=== PATIENT | male | born 1980 | race Caucasian/White ===

== ENCOUNTER 2016-08-06 11:48 | Emergency (ER) | payer OTHER ==
[~2016-08-06] VITALS: Wt 68.1 kg
[2016-08-06] MEDS ORDERED: LIDOCAINE 1% (MPF) 5 ML VIAL SC ONE ×2 (14:30→15:30)
[2016-08-06 14:32] LABS: ADD SCAN DIFF NO
[2016-08-06 14:39] LABS: BASOPHILS % 0.7 % (0.0-2.0); EOSINOPHILS # 0.3 10^3/ul (0.0-0.5); EOSINOPHILS % 4.4 % (0.0-7.0); HEMATOCRIT 44.7 % (42.0-52.0); HEMOGLOBIN 14.3 g/dl (14.0-18.0); LYMPHOCYTES % 34.7 % (15.0-51.0); MEAN CORPUSCULAR HEMOGLOBIN 28.4 pg (29.0-33.0); MEAN CORPUSCULAR VOLUME 88.9 fl (82.0-101.0); MONOCYTE # 0.7 10^3/ul (0.3-0.9); MONOCYTES % 12.1 % (0.0-11.0); NEUTROPHIL # 2.8 10^3/ul (1.6-7.5); NEUTROPHILS % 47.8 % (39.0-77.0); PLATELET COUNT 211 10^3/UL (140-415); RED BLOOD COUNT 5.03 10^6/ul (4.70-6.10); RED CELL DISTRIBUTION WIDTH 13.2 % (11.5-14.5); WHITE BLOOD COUNT 5.9 10^3/ul (4.8-10.8)
[2016-08-06] MEDS ORDERED: ALPR1TAB7 PO (14:39)
[2016-08-06] MEDS ORDERED: MORP60TA37 PO (14:41)
[2016-08-06 14:53] LABS: INR 1.01; POTASSIUM 4.4 mmol/L (3.5-5.1); PROTIME 13.3 Sec (12.2-14.2)
[2016-08-06 14:54] LABS: PARTIAL THROMBOPLASTIN TIME 29.8 Sec (25.0-35.0)
[2016-08-06 14:56] LABS: CREATININE 0.56 mg/dl (0.61-1.24)
[2016-08-06 14:57] LABS: CALCIUM 9.6 mg/dl (8.4-10.2)
[2016-08-06 15:29] LABS: ADD UMIC YES; URINE BILIRUBIN (Dip) NEGATIVE (NEGATIVE); URINE BLOOD (Dip) TRACE (NEGATIVE); URINE COLOR LT. YELLOW (YELLOW); URINE GLUCOSE (Dip) NEGATIVE (NEGATIVE); URINE KETONES (Dip) NEGATIVE (NEGATIVE); URINE LEUKOCYTE ESTERASE (Dip) 1+ (NEGATIVE); URINE NITRITE (Dip) POSITIVE (NEGATIVE); URINE TOTAL PROTEIN (Dip) NEGATIVE (NEGATIVE); URINE UROBILINOGEN (Dip) 0.2 E.U./dL (0.1-1.0)
[2016-08-06 15:36] LABS: BACTERIA,URINE MODERATE; MUCUS,URINE FEW
--- NOTE | 2016-08-06 16:31 | RADRPT ---
PROCEDURE: XR Chest. CLINICAL INDICATION: Check PICC line position. TECHNIQUE: Single frontal view. COMPARISON: No prior study is available for comparison. FINDINGS: There is a left arm PICC line with the tip in the lower superior vena cava. The visualized portions of the lungs are clear. The lung bases are not completely included on the image. There has been p rior cervical spine surgery with hardware noted. The heart size is normal. There is no pleural effusion. There is no pneumothorax. IMPRESSION: 1. Satisfactory position of left arm PICC line. 2. Lower lung is not completely included on the image. 3. Prior cervical spine surgery. RPTAT: QQ .Haris Rosario MD, MD Date Time Electronically viewed and signed by .Haris Rosario MD, on 08/06/2016 16:30 .R/
[2016-08-06] MEDS ORDERED: ALPR2TAB PO (16:43)
[2016-08-06] MEDS ORDERED: NAPR-688 PO (16:55)
[2016-08-06] MEDS ORDERED: LEVO500T72 PO (16:55)
[2016-08-06] MEDS ORDERED: PIPER-TAZO 3.375 GM IV (PMX) 100 ML IVPB ONE (17:00)
--- NOTE | 2016-08-06 17:37 | ERD ---
ER Documentation Chief Complaint Date/Time DATE: 08/06/16 TIME: 17:33 Chief Complaint SENT HERE BY PMD FOR PICC LINE INSERTION FOR HOME ABX THERAPY FOR UTI. HPI 36-year-old male comes to the emergency room for PICC line insertion he said was recommended by his doctor. Patient is intelligent and knows his doctors names and numbers. He states that he gets frequent urinary tract and infections as he is a paraplegic. Most recently his urine grew Pseudomonas that was resistant to ciprofloxacin. He states that Zosyn is now recommended for home use. He is currently has been burning on urination. He denies any fevers chills. ROS All systems reviewed and are negative except as per history of present illness. Medications Home Meds Active Scripts Naproxen* (Naproxen*) 500 Mg Tablet, 500 MG PO BID Y for PAIN, #14 TAB Prov:JOANNA NICHOLS DO 08/06/16 Levofloxacin* (Levaquin*) 500 Mg Tablet, 500 MG PO DAILY for 7 Days, TAB Prov:JOANNA NICHOLS DO 08/06/16 Reported Medications Alprazolam* (Xanax*) 2 Mg Tablet, 2 MG PO BID Y for ANXIETY, TAB 08/06/16 Morphine Sulfate* (Ms Contin*) 60 Mg Tablet.sa, 60 MG PO Q12, TAB.SA 08/06/16 Discontinued Reported Medications Alprazolam* (Alprazolam*) 1 Mg Tablet, 2 MG PO BID Y for ANXIETY, TAB 08/06/16 Allergies Allergies: Coded Allergies: No Known Allergy (Unverified , 08/06/16) PMhx/Soc History of Surgery: Yes (Reconstructive surgery to R leg.) Anesthesia Reaction: No Hx Neurological Disorder: No Hx Respiratory Disorders: No Hx Cardiac Disorders: No Hx Psychiatric Problems: No Hx Miscellaneous Medical Probl: Yes (autonimic dysreflexia.) Hx Alcohol Use: Yes Hx Substance Use: No Hx Tobacco Use: No Smoking Status: Never smoker Physical Exam Vitals Vital Signs Date Time Temp Pulse Resp B/P Pulse Ox O2 Delivery O2 Flow Rate FiO2 08/06/16 11:53 98.8 73 20 109/65 98 Physical Exam Const: [] No distress Head: Atraumatic Eyes: Normal Conjunctiva ENT: Normal External Ears, Nose and Mouth. Neck: Full range of motion..~ No meningismus. Resp: Clear to auscultation bilaterally Cardio: Regular rate and rhythm, no murmurs Abd: Soft, non tender, non distended. Normal bowel sounds Skin: No petechiae or rashes Back: No midline or flank tenderness Ext: No cyanosis, or edema, distal pulses intact all 4 extremities Neur: Awake and alert Psych: Normal Mood and Affect Result Diagram: 08/06/16 1425 08/06/16 1425 Results 24 hrs Laboratory Tests Test 08/06/16 14:25 08/06/16 15:10 White Blood Count 5.910^3/ul Red Blood Count 5.0310^6/ul Hemoglobin 14.3g/dl Hematocrit 44.7% Mean Corpuscular Volume 88.9fl Mean Corpuscular Hemoglobin 28.4pg Mean Corpuscular Hemoglobin Concent 32.0g/dl Red Cell Distribution Width 13.2% Platelet Count 47445^3/UL Mean Platelet Volume 11.0fl Neutrophils % 47.8% Lymphocytes % 34.7% Monocytes % 12.1% Eosinophils % 4.4% Basophils % 0.7% Nucleated Red Blood Cells % 0.0/100WBC Neutrophils # 2.810^3/ul Lymphocytes # 2.010^3/ul Monocytes # 0.710^3/ul Eosinophils # 0.310^3/ul Basophils # 0.010^3/ul Nucleated Red Blood Cells # 0.010^3/ul Prothrombin Time 13.3Sec Prothrombin Time Ratio 1.0 INR International Normalized Ratio 1.01 Activated Partial Thromboplast Time 29.8Sec Sodium Level 141mmol/L Potassium Level 4.4mmol/L Chloride Level 102mmol/L Carbon Dioxide Level 28mmol/L Anion Gap 15 Blood Urea Nitrogen 17mg/dl Creatinine 0.56mg/dl Glucose Level 88mg/dl Calcium Level 9.6mg/dl Urine Color LT. YELLOW Urine Clarity CLEAR Urine pH 7.0 Urine Specific [place] <=1.005 Urine Ketones NEGATIVE Urine Nitrite POSITIVE Urine Bilirubin NEGATIVE Urine Urobilinogen 0.2 E.U./dL Urine Leukocyte Esterase 1+ Urine Microscopic RBC 2-5/HPF Urine Microscopic WBC 5-10/HPF Urine Epithelial Cells FEW Urine Bacteria MODERATE Urine Mucus FEW Urine Hemoglobin TRACE Urine Glucose NEGATIVE% Urine Total Protein NEGATIVE Current Medications Medications (Trade) Dose Ordered Sig/Isabella Route PRN Reason Start Time Stop Time Status Last Admin Dose Admin Lidocaine (Xylocaine 1% (Mpf)) 5 ml ONCE ONCE SC 08/06/16 14:30 08/06/16 14:32 DC Lidocaine 5 ml 5 ml ONCE ONCE SC 08/06/16 15:30 08/06/16 15:31 DC Piperacillin Sod/ Tazobactam Sod (Zosyn 3.375gm/ 100 ml (Pmx)) 100 ml @ 200 mls/hr ONCE ONCE IVPB 08/06/16 17:00 08/06/16 17:29 DC 08/06/16 17:14 Procedures/MDM Patient with reports of refractory UTI. Said that he was sent to [facility] emergency room yesterday for PICC line insertion. It was taking too long and he had a work-related engagement he had to attend and so he left AMA. Presents today for a PICC line. PICC line was inserted by the PICC line team.. I spoke with the patient's infectious disease doctor who states that the patient did have Pseudomonas in his urine in April. He says that he will arrange home antibiotics on Tuesday if necessary. Urine culture was taken in the emergency room. He believes that currently his cultures the most recent UTI was sensitive to quinolones. Patient stated that his primary care doctor had a more recent culture that was not. I am going to give him a dose of Zosyn. He has no signs of sepsis or overwhelming infection currently simply has a nitrate positive UTI. This is a complicated UTI as it is in a male who is paraplegic. Going to discharge him with Levaquin for now and his doctor states that he he will determine the patient's need for IV medication at home and arranged this with home health. Departure Diagnosis: Primary Impression: Complicated UTI (urinary tract infection) Additional Impression: S/P PICC central line placement Condition: Stable Patient Instructions: Understanding Urinary Tract Infections (UTIs), Caring for Your Peripherally Inserted Central Catheter (PICC) Additional Instructions: Call your INFECTIOUS DISEASE DOCTOR TUESDAY for an appointment during the next 2- 3 days.See the doctor sooner or return here if your condition worsens before your appointment time. JOANNA NICHOLS DO August 06, 2016 17:37
[2016-08-06] MEDS ORDERED: SOD CHLORIDE 0.9% 100 ML ONE (17:58)
[2016-08-06 18:52] VITALS: BP 106/68; PULSE 78; RESP 18; TEMP 98.8
--- NOTE | 2016-08-07 12:37 | RADRPT ---
PROCEDURE: Ultrasound proximal upper extremity for PICC placement CLINICAL INDICATION: PICC placement TECHNIQUE: Sonographic evaluation of the proximal left upper extremity vessels was performed utilizi ng a high-frequency linear transducer. COMPARISON: None available FINDINGS: Limited evaluation of the proximal upper extremity for vascular access for PICC placement. Grossly, no abnormality is seen. IMPRESSION: 1. Unremarkable limited proximal left upper extremity ultrasound for PICC placement. RPTAT: QQ .Anthony Irby MD, MD Date Time Electronically viewed and signed by .Anthony Irby MD, MD on 08/07/2016 12:37 .R/
== END 2016-08-06 18:52 | disposition home or self-care (01) ==
LOC: E/R 11:48
DX: N39.0 Urinary tract infection, site not specified (principal); R40.2252 Coma scale, best verbal response, oriented, at arrival to emergency department; R40.2362 Coma scale, best motor response, obeys commands, at arrival to emergency department; R40.2142 Coma scale, eyes open, spontaneous, at arrival to emergency department
CPT/HCPCS: 36569; 71010; 76937; 80048; 81001; 85025; 85610; 85730; 87086; 96365; J2543; Z7502; Z7610; 81003

== ENCOUNTER 2017-10-05 09:26 | Inpatient (IN) | END 2017-10-10 00:30 | disposition home health service (06) | DRG 699 ==